=== PATIENT | female | born 1945 | race Caucasian/White ===

== ENCOUNTER 2018-06-08 11:35 | Inpatient (IN) | payer OTHER ==
[~2018-06-08] VITALS: Ht 177.8 cm; Wt 141.2 kg
--- NOTE | ~2018-06-08 | CON ---
[place], [place] REPORT OF CONSULTATION NAME: [facility]ONG [id number] UNIT #: [id number] ROOM: 402 DOCTOR: PHD SARKIS CLARIBEL BIRTHDATE: [birth year] DOS: HISTORY OF PRESENT ILLNESS: The patient is a 72-year-old female referred by Dr. Olmstead with concerns for depression. At the present time, the patient is on the medical floor at [facility]. The patient is and lives with her daughter, who will be staying out of town during the school year to attend graduate school. She has a son, who lives in [place]. 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 PAST MEDICAL HISTORY: Significant for AFib, cholelithiasis, renal calculi, hypercholesterolemia, hypertension, morbid obesity, osteoarthritis, spinal stenosis of the lumbar region, vitamin B deficiency, vitamin D deficiency. PAST SURGICAL HISTORY: Tonsillectomy, appendectomy. MEDICATIONS: Include Synthroid, Lipitor, Ultram, Dulcolax, Zofran, Levaquin, Lanoxin. SOCIAL HISTORY: The patient denied drug and alcohol use and is a former smoker. The patient is awake, alert, and oriented to person, place, and time. She acknowledged a subjective sense of sadness and concerns for her house. She firmly denied suicidal ideation, plan, and intent. She has struggled with adjustment to disability issues over the past 6 months. Provided cognitive behavioral and supportive therapy interventions. The patient was agreeable to participating in counseling upon discharge. DIAGNOSIS: Adjustment disorder with depressed mood. RECOMMENDATIONS: Individual therapy upon discharge. Thank you very much for this consult. Cheyanne Desouza, PhD CM:CONSTR:REPORT OF CONSULTATION 1622 06/10/18 0210 interface
[~2018-06-08 11:35] MED LIST: CEFTIN500 M1 PO; DILTIAZEM HCL90 M1 PO; DILTIAZEM HYDR PO; LEVOTHYROXIN0.125 MG PO; SIMVASTATIN40 MG PO; VITAMIN D34000 UNIT PO; XARE20MG PO
[2018-06-08 11:44] VITALS: BP 97/71
[2018-06-08 12:30] VITALS: BP 101/62
[2018-06-08 13:18] LABS: BILIRUBIN 1+ (NEGATIVE); BLOOD 3+ (NEGATIVE); CLARITY TURBID (CLEAR); COLOR YELLOW (YELLOW); GLUCOSE NEGATIVE (NEGATIVE); KETONE NEGATIVE (NEGATIVE); LEUKO ESTERASE 3+ (NEGATIVE); NITRITE POSITIVE (NEGATIVE); SPECIFIC GRAVITY 1.025 (1.005-1.030)
[2018-06-08 13:31] LABS: WBC TNTC wbc/hpf (0-5)
[2018-06-08 13:31] LABS: BASO % 0.5 % (0.0-1.0); EOS # 0.1 10*3/uL (0.0-0.4); EOS % 0.7 % (1.0-4.0); HEMATOCRIT 42.1 % (37.0-47.0); HEMOGLOBIN 12.9 g/dl (12.0-16.0); LYMPH % 11.8 % (27.0-41.0); MEAN CELL VOLUME 83.5 fl (81.0-99.0); MEAN CORPUSCULAR HGB 25.6 pg (27.0-31.0); MEAN CORPUSCULAR HGB CONC 30.6 g/dl (33.0-37.0); MEAN PLATELET VOLUME 10.2 fl (9.6-12.3); MONO # 0.7 10*3/uL (0.1-1.0); MONO % 8.2 % (3.0-9.0); NEUT # 6.9 10*3/uL (2.3-7.9); NEUT % 77.7 % (47.0-73.0); PLATELET COUNT AUTOMATED 323 10*3/uL (130-400); RED BLOOD COUNT 5.04 10*6/uL (4.10-5.10); RED CELL DISTRI WIDTH 14.5 % (0-14.5); WHITE BLOOD COUNT 8.8 10*3/uL (4.8-10.8)
[2018-06-08 13:47] LABS: ALBUMIN 2.4 gm/dl (3.1-4.5); ALKALINE PHOSPHATASE 123 U/L (45-117); BUN 11 mg/dl (7-24); CHLORIDE 108 mmol/L (98-107); CREATININE 0.67 mg/dL (0.55-1.02); LIPASE 78 U/L (73-393); POTASSIUM 3.7 mmol/L (3.5-5.1); SGOT/AST 10 IU/L (3-35); SGPT/ALT 14 U/L (12-78); SODIUM 143 mmol/L (136-145); TROPONIN I < 0.015 ng/ml (<0.045)
[2018-06-08 13:48] LABS: ACT PARTIAL THROMBO TIME 49.8 SECONDS (20.8-31.5)
[2018-06-08 13:51] VITALS: BP 94/51
[2018-06-08 13:57] LABS: INTERNATIONAL NORM RATIO 7.1 (2.0-3.5)
[2018-06-08 15:38] VITALS: BP 97/56
[2018-06-08 16:00] VITALS: BP 97/56
[2018-06-08] MEDS ORDERED: METOPROLOL TART75 MG PO (17:02)
[2018-06-08] MEDS ORDERED: ROSUVASTATIN CA10 MG PO (17:03)
[2018-06-08] MEDS ORDERED: ZESTRIL10 MG PO (17:03)
[2018-06-08] MEDS ORDERED: WARFARIN SOD5 MG PO (17:05)
[2018-06-08] MEDS ORDERED: FUROSEMIDE20 M1 PO (17:05)
[2018-06-08] MEDS ORDERED: ULTRAM50 MG PO (17:06)
[2018-06-08 20:00] VITALS: BP 102/60
[2018-06-09] VITALS (12 sets, daily range): BP systolic 88–152; BP diastolic 28–67
[2018-06-09 06:00] LABS: BASO % 0.5 % (0.0-1.0); EOS # 0.1 10*3/uL (0.0-0.4); EOS % 1.8 % (1.0-4.0); HEMATOCRIT 38.2 % (37.0-47.0); LYMPH # 1.2 10*3/uL (1.3-4.4); LYMPH % 19.7 % (27.0-41.0); MEAN CELL VOLUME 82.7 fl (81.0-99.0); MEAN CORPUSCULAR HGB CONC 31.4 g/dl (33.0-37.0); MEAN PLATELET VOLUME 10.2 fl (9.6-12.3); MONO # 0.6 10*3/uL (0.1-1.0); MONO % 10.3 % (3.0-9.0); NEUT # 4.1 10*3/uL (2.3-7.9); NEUT % 66.7 % (47.0-73.0); PLATELET COUNT AUTOMATED 281 10*3/uL (130-400); RED BLOOD COUNT 4.62 10*6/uL (4.10-5.10); RED CELL DISTRI WIDTH 14.6 % (0-14.5); WHITE BLOOD COUNT 6.1 10*3/uL (4.8-10.8)
[2018-06-09 06:27] LABS: ALBUMIN 2.2 gm/dl (3.1-4.5); BUN 9 mg/dl (7-24); CHLORIDE 109 mmol/L (98-107); POTASSIUM 3.6 mmol/L (3.5-5.1); SGPT/ALT 13 U/L (12-78); SODIUM 142 mmol/L (136-145)
[2018-06-09 06:34] LABS: ALKALINE PHOSPHATASE 102 U/L (45-117); CREATININE 0.46 mg/dL (0.55-1.02); FREE T4 1.68 ng/dl (0.76-1.46); PHOSPHOROUS 3.1 mg/dL (2.5-4.9); SGOT/AST 16 IU/L (3-35); THYROID STIM HORMONE (HS) 0.853 uIU/ml (0.358-4.75)
[2018-06-09 06:39] LABS: ACT PARTIAL THROMBO TIME 51.3 SECONDS (20.8-31.5)
[2018-06-09 06:46] LABS: INTERNATIONAL NORM RATIO 5.7 (2.0-3.5)
[2018-06-10] VITALS (10 sets, daily range): BP systolic 91–136; BP diastolic 44–85
[2018-06-10 06:58] LABS: BASO # 0.1 10*3/uL (0.0-0.1); BASO % 0.7 % (0.0-1.0); EOS # 0.2 10*3/uL (0.0-0.4); HEMOGLOBIN 12.4 g/dl (12.0-16.0); LYMPH # 1.3 10*3/uL (1.3-4.4); LYMPH % 18.2 % (27.0-41.0); MEAN CELL VOLUME 82.8 fl (81.0-99.0); MEAN CORPUSCULAR HGB 25.7 pg (27.0-31.0); MEAN PLATELET VOLUME 10.3 fl (9.6-12.3); MONO # 0.8 10*3/uL (0.1-1.0); MONO % 10.4 % (3.0-9.0); NEUT # 4.8 10*3/uL (2.3-7.9); PLATELET COUNT AUTOMATED 287 10*3/uL (130-400); RED BLOOD COUNT 4.83 10*6/uL (4.10-5.10); RED CELL DISTRI WIDTH 14.6 % (0-14.5); WHITE BLOOD COUNT 7.3 10*3/uL (4.8-10.8)
[2018-06-10 07:10] LABS: BUN 9 mg/dl (7-24); CHLORIDE 109 mmol/L (98-107); CREATININE 0.55 mg/dL (0.55-1.02); POTASSIUM 3.6 mmol/L (3.5-5.1); SODIUM 145 mmol/L (136-145)
[2018-06-10 07:12] LABS: INTERNATIONAL NORM RATIO 4.9 (2.0-3.5)
[2018-06-11] VITALS: BP 139/68
[2018-06-11 07:14] LABS: INTERNATIONAL NORM RATIO 2.9 (2.0-3.5)
[2018-06-11 08:00] VITALS: BP 106/54
[2018-06-11 12:00] VITALS: BP 103/50
[2018-06-11] MEDS ORDERED: LEVAQUIN750 M1 PO (13:10)
[2018-06-11] MEDS ORDERED: TOPROL XL50 M1 PO (13:10)
[2018-06-11] MEDS ORDERED: K-TAB20 MEQ PO (13:10)
[2018-06-11] MEDS ORDERED: ULTRAM50 MG PO (13:10)
[2018-06-11] MEDS ORDERED: LASIX40 MG PO (13:10)
[2018-06-11] MEDS ORDERED: COUMADIN5 M2 PO (13:10)
[2018-06-11] MEDS ORDERED: DILTIAZEM 24HR300 M1 PO (13:10)
[2018-06-11] MEDS ORDERED: NYSTOP60 GM T (13:10)
[2018-06-11] MEDS ORDERED: SYNTHROID,LEV112 MCG PO (13:10)
[2018-06-11 16:00] VITALS: BP 98/48
== END 2018-06-11 16:13 | disposition other institution (70) | DRG 871 ==
LOC: ED 11:35 → EDHOLD 14:07 → 4E 14:07
PROVIDERS: Emergency Medicine; Internal Medicine
DX: A41.9 Sepsis, unspecified organism (principal); E43 Unspecified severe protein-calorie malnutrition; L89.153 Pressure ulcer of sacral region, stage 3; I48.91 Unspecified atrial fibrillation; L89.313 Pressure ulcer of right buttock, stage 3; E87.8 Other disorders of electrolyte and fluid balance, not elsewhere classified; N39.0 Urinary tract infection, site not specified; Z68.41 Body mass index [BMI] 40.0-44.9, adult; E66.01 Morbid (severe) obesity due to excess calories; F43.21 Adjustment disorder with depressed mood; R74.8 Abnormal levels of other serum enzymes; E55.9 Vitamin D deficiency, unspecified; E53.9 Vitamin B deficiency, unspecified; R79.1 Abnormal coagulation profile; I11.0 Hypertensive heart disease with heart failure; M19.90 Unspecified osteoarthritis, unspecified site; I50.9 Heart failure, unspecified; R26.2 Difficulty in walking, not elsewhere classified; E78.00 Pure hypercholesterolemia, unspecified; E03.9 Hypothyroidism, unspecified; R31.9 Hematuria, unspecified; Z79.01 Long term (current) use of anticoagulants; Z79.899 Other long term (current) drug therapy; Z87.440 Personal history of urinary (tract) infections; Z87.442 Personal history of urinary calculi; Z90.49 Acquired absence of other specified parts of digestive tract; Z82.49 Family history of ischemic heart disease and other diseases of the circulatory system; Z83.3 Family history of diabetes mellitus; Z79.4 Long term (current) use of insulin; Z80.3 Family history of malignant neoplasm of breast

== ENCOUNTER 2018-09-05 09:45 | Emergency (ER) | payer OTHER ==
[~2018-09-05] VITALS: Ht 5 cm; Wt 134.7 kg
--- NOTE | ~2018-09-05 | EKG ---
[place], [place] ELECTROCARDIOGRAM REPORT NAME: DYLLAN ARMSTRONG UNIT #: [id number] ROOM: DOCTOR: EPIPHANY DRAFT REPORT BIRTHDATE: [birth year] [facility] Test Date: 2018-09-05 Test Time: 10:13:27 Pat Name: DYLLAN ARMSTRONG Department: Room: Gender: F Host And Hostess: ESTEPHANIA : 1945 Requested By: BEE ACEVEDO Order Number: [id number] Reading MD: Miles Jones MD Measurements Intervals [place] Rate: 155 P: IA: QRS: 60 QRSD: 89 T: 252 QT: 314 QTc: 505 Interpretive Statements Atrial fibrillation with rapid V-rate Ventricular premature complex Repolarization abnormality, prob rate related Compared to ECG 08/20/2018 13:03:23 Ventricular premature complex(es) now present Early repolarization now present Sinus rhythm no longer present Electronically Signed On 09-06-2018 9:16:47 PDT by Miles Jones MD CM:EKGRPT:ELECTROCARDIOGRAM REPORT 1013 [id number] BEE BOOKER DRAFT REPORT BEE ACEVEDO M.D.
[~2018-09-05 09:45] MED LIST changes: +ATORVASTATIN CA20 M1 PO; +CARDIZEM CD180 MG PO; +COUMADIN3 M1 PO; +COUMADIN5 M2 PO; +DILTIAZEM 24HR300 M1 PO; +FUROSEMIDE20 M1 PO; +GERI-HYDROLAC222 ML T; +IMODIUM A-D2 M2 PO; +K-TAB20 MEQ PO; +LANOXIN250 MCG PO; +LASIX40 MG PO; +LEVAQUIN750 M1 PO; +LIPITOR10 MG PO; +LIQUACEL 30 ML30 M1 PO; +LOPRESSOR25 MG PO; +Lopressor25 MG PO; +METOPROLOL TART50 M1 PO; +METOPROLOL TART75 MG PO; +MIRALAX17 GM PO; +NATURE'S BLEND F1 MG PO; +NYSTOP60 GM T; +PACERONE200 MG PO; +PREPARATION H1 EAC1 R; +ROSUVASTATIN CA10 MG PO; +SYNTHROID,LEV112 MCG PO; +TAB-A-VITE1 EACH PO; +TOPROL XL50 M1 PO; +TRAMADOL HCL50 MG PO; +ULTRAM50 MG PO; +VITAMIN C100 M3 PO; +WARFARIN SOD5 MG PO; +ZESTRIL10 MG PO
[2018-09-05 10:11] LABS: BASO % 0.6 % (0.0-1.0); EOS # 0.1 10*3/uL (0.0-0.4); EOS % 1.4 % (1.0-4.0); HEMATOCRIT 40.8 % (37.0-47.0); LYMPH # 1.3 10*3/uL (1.3-4.4); LYMPH % 19.4 % (27.0-41.0); MEAN CELL VOLUME 86.1 fl (81.0-99.0); MEAN CORPUSCULAR HGB 27.4 pg (27.0-31.0); MEAN CORPUSCULAR HGB CONC 31.9 g/dl (33.0-37.0); MEAN PLATELET VOLUME 10.6 fl (9.6-12.3); MONO # 0.7 10*3/uL (0.1-1.0); MONO % 9.9 % (3.0-9.0); NEUT # 4.5 10*3/uL (2.3-7.9); NEUT % 68.2 % (47.0-73.0); PLATELET COUNT AUTOMATED 310 10*3/uL (130-400); RED BLOOD COUNT 4.74 10*6/uL (4.10-5.10); RED CELL DISTRI WIDTH 17.9 % (0-14.5); WHITE BLOOD COUNT 6.6 10*3/uL (4.8-10.8)
[2018-09-05 10:24] LABS: INTERNATIONAL NORM RATIO 1.4 (2.0-3.5)
[2018-09-05 10:27] LABS: ALKALINE PHOSPHATASE 189 U/L (45-117); BUN 6 mg/dl (7-24); CHLORIDE 110 mmol/L (98-107); CREATININE 0.48 mg/dL (0.55-1.02); POTASSIUM 3.3 mmol/L (3.5-5.1); SGOT/AST 36 IU/L (3-35); SGPT/ALT 19 U/L (12-78); SODIUM 143 mmol/L (136-145); TOTAL PROTEIN 5.6 gm/dL (6.4-8.2); TROPONIN I 0.026 ng/ml (<0.045)
== END 2018-09-05 11:24 | disposition home or self-care (01) ==
LOC: ED 09:45
PROVIDERS: Emergency Medicine
DX: I48.91 Unspecified atrial fibrillation (principal); I95.9 Hypotension, unspecified; R73.9 Hyperglycemia, unspecified; Z88.9 Allergy status to unspecified drugs, medicaments and biological substances; Z79.899 Other long term (current) drug therapy; Z68.41 Body mass index [BMI] 40.0-44.9, adult; Z90.89 Acquired absence of other organs; Z90.49 Acquired absence of other specified parts of digestive tract

== ENCOUNTER 2018-09-21 11:17 | Inpatient (IN) | payer OTHER ==
[~2018-09-21] VITALS: Ht 177.8 cm; Wt 130.3 kg
--- NOTE | ~2018-09-21 | PR ---
[place], [place] PROGRESS NOTE NAME: [id number] UNIT #: [id number] ROOM: 424 DOCTOR: DAVON STACK,MARCH BIRTHDATE: [birth year] DOS: 09/27/2018 SUBJECTIVE: The patient is being followed for UTI and cellulitis of her left leg. She remains on amoxicillin for VRE UTI as well as cefdinir for her left leg cellulitis, which continues to improve. She has no pain in the leg. Denies any nausea, vomiting. She has had diarrhea since May. Her stool for enteric pathogens and C. diff were both negative. No fevers or chills. No cough or shortness of breath. She feels well. LABORATORY DATA: WBC 6.4, platelets 232. BUN 6, creatinine 0.6. PHYSICAL EXAMINATION: VITAL SIGNS: Show temperature 97.7, pulse 73, respirations 20, BP 108/52. GENERAL: A 73-year-old obese female, in no acute distress. HEAD, EYES, EARS, NOSE AND THROAT: Normocephalic. No thrush. LUNGS: Clear to auscultation bilaterally. Respirations even and unlabored. HEART: Irregular rhythm. No murmur appreciated. ABDOMEN: Soft, obese. EXTREMITIES: +2 to 3 edema bilateral lower extremities. Left lower extremity with little residual erythema. No tenderness. ASSESSMENT: Left leg cellulitis, which is resolving as well as vancomycin-resistant Enterococci urinary tract infection. PLAN: She is to continue her cefdinir and amoxicillin. She is awaiting placement in SNF. The amoxicillin is till the and the cefdinir is till the . MARCH SREEKANTH MAYS Arabella Williamson MD CM:PNTRANS [id number] MARCH DAVON STACK 09/30/18 1544 interface
--- NOTE | ~2018-09-21 | PR ---
[place], [place] PROGRESS NOTE NAME: DYLLAN ARMSTRONG UNIT #: [id number] ROOM: 424 DOCTOR: ELO CARDENAS,VALERIA BIRTHDATE: [birth year] DOS: 09/27/2018 This is attestation to the progress note made by nurse practitioner, Marina Jones. I agree with the assessment and plan. I reviewed the labs, imaging and made the necessary changes in the note. Arabella Gasca MD CM:PNTRANS 17 31 VALERIA GASCA MD 10/04/182131 interface
--- NOTE | ~2018-09-21 | O ---
[place], [place] OPERATIVE NOTE NAME: [facility]AN [facility]STRONG [id number] UNIT #: [id number] ROOM: 424 DOCTOR: DARA CARDENASLIANE BIRTHDATE: [birth year] DOS: 09/28/2018 HISTORY OF PRESENT ILLNESS: A 73-year-old patient who presented with diarrhea. The patient's stool studies have been negative and the patient with multiple medical issues among which anasarca and lower extremity edema. Blood cultures have been negative. Consultation has been dictated. PAST MEDICAL HISTORY: Associated with hypothyroidism, cholelithiasis, difficulty ambulation, pericardial effusion, umbilical hernia, decubitus ulcers, protein-calorie malnutrition, and obesity. PAST SURGICAL HISTORY: Appendectomy, D and C, tonsillectomy. PROCEDURE: Today's procedure part of investigation is colonoscopy plus tattoo marking of a polyp at hepatic flexure. PREMEDICATION: Propofol. SCOPE: Olympus folding colonoscope 10L video. REPORT: After putting the patient in left lateral position and application of lubricant to the scope, the scope was introduced. Thereafter, under direct visualization, advanced through the length of colon without difficulty. A few small polypoid lesions were noticed particularly one larger approximately 1 cm and half at hepatic flexure with tattoo marked this area with 2 mL of tattoo ink. Base of the cecum explored, appendiceal orifice identified, ileocecal valve was intubated, which appears to be normal terminal ileum. The patient was gradually extubated, we could not take deep biopsies or any biopsies for that matter for microscopic colitis, neither tissue diagnosis of polyp because we found out at the last minute that the patient has been given Xarelto the last night. Therefore, the patient extubated, tolerated procedure well. IMPRESSION: Diverticulosis, particularly one at cecum. Multiple small sessile polypoid lesions in colon, history of chronic diarrhea. PLAN AND DISCUSSION: We are still having issues regarding lack of availability of tissue for diagnosis and eradication of possible tubulovillous polypoid lesions. She requires to have a separate session of being away from Xarelto at least 1 week, ____ being 3 days preoperatively and day of the operation and perhaps few days after operation because she needs to be back on Xarelto. There is exposure of tissue and possible bleeding as a consequence may happen. At the present time, we are going to manage this with start her on Lomotil 5 mg b.i.d. We have to break the cycle of diarrhea. We are going to put her on Florastor 500 mg daily, 250 mg b.i.d., avoiding dairy products completely and Questran 1 pack b.i.d. at the same time and conservative management until such a time that it is understood and cleared that we are going to be without anticoagulants for several days if we attempt removal of the polyps and the biopsy of the colon needed. Cultures have been all negative. Apparently, this has been studied in an outpatient setting. ____. Her stool studies are negative for ova and parasites, C. diff has been unremarkable. If this condition continues, then we [place], [place] OPERATIVE NOTE NAME: DYLLAN ARMSTRONG UNIT #: [id number] ROOM: [facility] DOCTOR: DARA CARDENAS,LIANE BIRTHDATE: [birth year] are going to proceed with a chromogranin A level to rule out neuroendocrine tumors contribution to her colonic contribution to diarrhea products. Workup in progress. LIANE DIAMOND MD CM:OPRECORD:OPERATIVE NOTE 29 30 LIANE DIAMOND MD 09/28/182230 interface
--- NOTE | ~2018-09-21 | EKG ---
[place], [place] ELECTROCARDIOGRAM REPORT NAME: DYLLAN ARMSTRONG UNIT #: [id number] ROOM: 424 DOCTOR: ADE DRAFT REPORT BIRTHDATE: [birth year] [facility] Test Date: 2018-09-21 Test Time: 14:15:25 Pat Name: DYLLAN ARMSTRONG Department: Room: 424 Gender: F Coil Machine Supervisor: Silvana Amaro : 1945 Requested By: CARIDAD ANTUNEZ Order Number: [id number] Reading MD: Miles Jones MD Measurements Intervals [place] Rate: 105 P: 0 ND: QRS: 38 QRSD: 86 T: 240 QT: 315 QTc: 417 Interpretive Statements Atrial fibrillation with rapid response Low voltage, precordial leads Nonspecific repol abnormality, diffuse leads Compared to ECG 09/05/2018 10:13:27 Low QRS voltage now present Electronically Signed On 09-25-2018 12:04:40 PDT by Miles Jones MD CM:EKGRPT:ELECTROCARDIOGRAM REPORT 1415 1204 CARIDAD BOOKER DRAFT REPORT CARIDAD MCMANUS
--- NOTE | ~2018-09-21 | CON ---
[place], [place] REPORT OF CONSULTATION NAME[id number] UNIT #: [id number] ROOM: 424 DOCTOR: DARA CARDENASLIANE BIRTHDATE: [birth year] DOS: 09/25/2018 GASTROINTESTINAL CONSULTATION REPORT HISTORY OF PRESENT ILLNESS: This is a 73-year-old patient who presented with multiple medical problems, among which has been venous insufficiency of lower extremities, difficulty ambulation, extreme edema of lower extremity. Also she has been complaining of chronic diarrhea that has been with her since May. She resides in a snf with difficulty ambulation and rehabilitation. I have been asked for assessment of the diarrhea. We have had a stool culture that has been negative as well. We have C. diff assessment that has been negative. The patient apparently is in a snf, has been given 2 weeks of Questran, which she tells me that it did not help and therefore it was discontinued. PAST MEDICAL HISTORY: Morbid obesity, difficulty ambulation, cholelithiasis, history of hypothyroidism, incontinence, old history of pericardial effusion, protein-calorie malnutrition, umbilical hernia, and decubitus ulcer, all has been reviewed. PAST SURGICAL HISTORY: Tonsillectomy, appendectomy, D and C, shoulder surgery. SOCIAL HISTORY: Nonsmoker, nonalcohol consumer. FAMILY HISTORY: Noncontributory. ALLERGIES: TO NO MEDICATION, TO CERTAIN SOAPS; HOWEVER, SHE IS ALLERGIC TO. HOME MEDICATIONS: Reviewed including amiodarone, atorvastatin, digoxin, folic acid, levothyroxine, metoprolol, potassium supplementation and Xarelto. REVIEW OF SYSTEMS: HEENT: Denies double vision or blurred vision. RESPIRATORY: Denies acute shortness of breath. CARDIOVASCULAR: Denies acute chest pain. DIGESTIVE SYSTEM: Complaining of diarrhea, some days worse than the other since May. Apparently, she has been told by multiple physicians in the past to have a colonoscopy done; however, for variety of reasons, she could not get around it. PHYSICAL EXAMINATION: VITAL SIGNS: Stable. GENERAL: Pleasant patient, fully alert and oriented. HEENT: Head: Normocephalic, nontraumatic. Mouth and buccal mucosa benign. NECK: Supple, no thyromegaly, no cervical lymphadenopathy. CHEST: Symmetric anatomy, equal expansion. HEART: Irregular irregularity of atrial fibrillation with moderate ventricular response. Soft systolic murmur at left sternal border was noticed. ABDOMEN: Morbidly obese. Intraabdominal organs cannot be palpated because of the umbilical hernia. This is about an 8 cm in its diameter, nonreducible. EXTREMITIES: 3+ edema from thigh to the ankle joint. Chronic subcutaneus [place], [place] REPORT OF CONSULTATION NAME: DYLLAN ARMSTRONG UNIT #: [id number] ROOM: 424 DOCTOR: LIANE DIAMOND MD BIRTHDATE: [birth year] dependent edema, which is difficult to drive with diuretics noticed. NEUROLOGIC: Fully alert, oriented to time, place, person. Sensory and motor intact. Cranial nerves 2-12 intact. IMPRESSION: Diarrhea, chronic noninfectious based on Clostridium difficile and stool cultures, peripheral edema, and difficulty ambulation. Other adjunctive diagnoses as outlined in paragraph past medical, surgical history. Urine culture, heavy gram-positive cocci has been addressed with antibiotic therapy. This was vancomycin-resistant Enterococcus species. Apparently, resistance to tetracycline, vancomycin, ciprofloxacin, and levofloxacin, all has been noticed; however, sensitive to multiple other choice including the linezolid and penicillins. PLAN AND DISCUSSION: Otherwise, the patient is apparently ready to be discharged as I see by hospitalist team. If she is discharged, I am going to be making arrangements through _[facility] to start her on colonic prep on Friday and Friday morning, we are going to do a colonoscopy as an outpatient on her unless she is remaining as inpatient. Therefore, then we will address at such. Other adjunctive diagnoses as outlined in paragraph past medical, surgical history. Workup in progress. We are concerned about a secretory tubulovillous adenoma, possibly large or occult colonic malignancy, otherwise. Thank you very much indeed. LIANE DIAMOND MD CM:CONSTR:REPORT OF CONSULTATION 1618 09/26/18 1113 interface
--- NOTE | ~2018-09-21 | EKG ---
[place], [place] ELECTROCARDIOGRAM REPORT NAME: DYLLAN ARMSTRONG UNIT #: [id number] ROOM: 424 DOCTOR: ADE DRAFT REPORT BIRTHDATE: [birth year] [facility] Test Date: 2018-09-21 Test Time: 11:42:32 Pat Name: DYLLAN ARMSTRONG Department: Room: 424 Gender: F Senior It Auditor: Silvana Amaro : 1945 Requested By: ROLO MUÑOZ Order Number: [id number] Reading MD: Miles Jones MD Measurements Intervals [place] Rate: 129 P: AR: QRS: 61 QRSD: 90 T: 259 QT: 316 QTc: 463 Interpretive Statements Atrial fibrillation Repol abnrm suggests ischemia, diffuse leads Baseline wander in lead(s) V1 Compared to ECG 09/05/2018 10:13:27 Possible ischemia now present Ventricular premature complex(es) no longer present Electronically Signed On 09-25-2018 12:03:22 PDT by Miles Jones MD CM:EKGRPT:ELECTROCARDIOGRAM REPORT 1142 1203 ROLO MUÑOZ MD EPIPHANY DRAFT REPORT ROLO MUÑOZ MD
[2018-09-21 11:21] VITALS: BP 110/47
[2018-09-21 11:47] LABS: HEMATOCRIT 39.9 % (37.0-47.0); HEMOGLOBIN 12.8 g/dl (12.0-16.0); MEAN CELL VOLUME 86.2 fl (81.0-99.0); MEAN CORPUSCULAR HGB 27.6 pg (27.0-31.0); MEAN CORPUSCULAR HGB CONC 32.1 g/dl (33.0-37.0); MEAN PLATELET VOLUME 11.3 fl (9.6-12.3); PLATELET COUNT AUTOMATED 277 10*3/uL (130-400); RED BLOOD COUNT 4.63 10*6/uL (4.10-5.10); RED CELL DISTRI WIDTH 16.5 % (0-14.5); WHITE BLOOD COUNT 19.1 10*3/uL (4.8-10.8)
[2018-09-21 11:56] LABS: ACT PARTIAL THROMBO TIME 34.5 SECONDS (20.8-31.5); INTERNATIONAL NORM RATIO 1.5 (2.0-3.5)
[2018-09-21 11:59] LABS: ALBUMIN 1.9 gm/dl (3.1-4.5); ALKALINE PHOSPHATASE 197 U/L (45-117); BUN 6 mg/dl (7-24); CHLORIDE 105 mmol/L (98-107); CREATININE 0.53 mg/dL (0.55-1.02); POTASSIUM 2.7 mmol/L (3.5-5.1); SGOT/AST 29 IU/L (3-35); SGPT/ALT 17 U/L (12-78); SODIUM 139 mmol/L (136-145); TOTAL PROTEIN 5.7 gm/dL (6.4-8.2); TROPONIN I 0.042 ng/ml (<0.045)
[2018-09-21 12:09] LABS: ATYPICAL LYMPHS 1 % (0-0); PLATELET SUFFICIENCY NORMAL (NORMAL); TOTAL CELLS COUNTED 100 #CELLS
[2018-09-21 13:47] LABS: BILIRUBIN 1+ (NEGATIVE); BLOOD 3+ (NEGATIVE); CLARITY CLOUDY (CLEAR); COLOR ORANGE (YELLOW); GLUCOSE NEGATIVE (NEGATIVE); KETONE TRACE (NEGATIVE); LEUKO ESTERASE 3+ (NEGATIVE); NITRITE POSITIVE (NEGATIVE); SPECIFIC GRAVITY 1.025 (1.005-1.030)
[2018-09-21 14:17] VITALS: BP 98/40
[2018-09-21 14:17] LABS: RBC TNTC rbc/hpf (0-2)
[2018-09-21 15:49] VITALS: BP 118/60
[2018-09-21 19:32] LABS: ALBUMIN 1.8 gm/dl (3.1-4.5); ALKALINE PHOSPHATASE 183 U/L (45-117); BUN 6 mg/dl (7-24); CHLORIDE 103 mmol/L (98-107); CREATININE 0.65 mg/dL (0.55-1.02); POTASSIUM 2.9 mmol/L (3.5-5.1); SGOT/AST 25 IU/L (3-35); SGPT/ALT 15 U/L (12-78); SODIUM 138 mmol/L (136-145); TOTAL PROTEIN 5.5 gm/dL (6.4-8.2)
[2018-09-21 20:00] VITALS: BP 92/73
[2018-09-21 21:00] VITALS: BP 102/46
[2018-09-22] VITALS: BP 96/42
[2018-09-22 07:04] LABS: BASO % 0.3 % (0.0-1.0); EOS % 0.2 % (1.0-4.0); HEMATOCRIT 36.3 % (37.0-47.0); HEMOGLOBIN 11.6 g/dl (12.0-16.0); LYMPH # 1.2 10*3/uL (1.3-4.4); LYMPH % 13.9 % (27.0-41.0); MEAN CELL VOLUME 87.7 fl (81.0-99.0); MEAN PLATELET VOLUME 11.4 fl (9.6-12.3); MONO # 0.7 10*3/uL (0.1-1.0); MONO % 7.9 % (3.0-9.0); NEUT # 6.9 10*3/uL (2.3-7.9); NEUT % 77.2 % (47.0-73.0); PLATELET COUNT AUTOMATED 217 10*3/uL (130-400); RED BLOOD COUNT 4.14 10*6/uL (4.10-5.10); RED CELL DISTRI WIDTH 16.5 % (0-14.5); WHITE BLOOD COUNT 8.9 10*3/uL (4.8-10.8)
[2018-09-22 07:38] LABS: ALBUMIN 1.6 gm/dl (3.1-4.5); ALKALINE PHOSPHATASE 161 U/L (45-117); BUN 6 mg/dl (7-24); CHLORIDE 108 mmol/L (98-107); CREATININE 0.52 mg/dL (0.55-1.02); HDL CHOLESTEROL 27 mg/dl (40-60); PHOSPHOROUS 2.2 mg/dL (2.5-4.9); POTASSIUM 3.2 mmol/L (3.5-5.1); SGOT/AST 23 IU/L (3-35); SGPT/ALT 15 U/L (12-78); SODIUM 141 mmol/L (136-145); TRIGLYCERIDES 68 mg/dl (<150); VLDL CHOLESTEROL 14 mg/dL (6-40)
[2018-09-22 07:43] LABS: THYROID STIM HORMONE (HS) 0.829 uIU/ml (0.358-4.75)
[2018-09-22 07:45] LABS: CHOLESTEROL < 50 mg/dL (<200); LDL CHOLESTEROL 9 mg/dL (9-159)
[2018-09-22 08:00] VITALS: BP 94/54
[2018-09-22 09:15] LABS: VITAMIN D, 25-HYDROXY 31.2 ng/mL (30-100)
[2018-09-22 12:00] VITALS: BP 97/73
[2018-09-22 16:00] VITALS: BP 88/50
[2018-09-22 20:00] VITALS: BP 80/40
[2018-09-22 22:30] VITALS: BP 96/48
[2018-09-23] VITALS: BP 80/59
[2018-09-23 04:30] VITALS: BP 88/46
[2018-09-23 06:54] LABS: BUN 8 mg/dl (7-24); CHLORIDE 110 mmol/L (98-107); CREATININE 0.73 mg/dL (0.55-1.02); POTASSIUM 3.1 mmol/L (3.5-5.1); SODIUM 144 mmol/L (136-145)
[2018-09-23 08:00] VITALS: BP 90/46
[2018-09-23 12:00] VITALS: BP 98/50
[2018-09-23 16:00] VITALS: BP 94/62
[2018-09-23 20:00] VITALS: BP 98/68
[2018-09-24] VITALS: BP 98/71
[2018-09-24 06:52] LABS: BASO % 0.6 % (0.0-1.0); EOS # 0.1 10*3/uL (0.0-0.4); EOS % 2.3 % (1.0-4.0); HEMOGLOBIN 10.9 g/dl (12.0-16.0); LYMPH # 1.1 10*3/uL (1.3-4.4); LYMPH % 22.7 % (27.0-41.0); MEAN CELL VOLUME 89.7 fl (81.0-99.0); MEAN CORPUSCULAR HGB 27.9 pg (27.0-31.0); MEAN CORPUSCULAR HGB CONC 31.1 g/dl (33.0-37.0); MEAN PLATELET VOLUME 11.5 fl (9.6-12.3); MONO # 0.5 10*3/uL (0.1-1.0); MONO % 9.4 % (3.0-9.0); NEUT # 3.1 10*3/uL (2.3-7.9); NEUT % 64.6 % (47.0-73.0); PLATELET COUNT AUTOMATED 200 10*3/uL (130-400); RED CELL DISTRI WIDTH 16.7 % (0-14.5); WHITE BLOOD COUNT 4.8 10*3/uL (4.8-10.8)
[2018-09-24 07:32] LABS: BUN 5 mg/dl (7-24); CHLORIDE 111 mmol/L (98-107); POTASSIUM 2.7 mmol/L (3.5-5.1); SODIUM 144 mmol/L (136-145)
[2018-09-24 07:33] LABS: CREATININE 0.69 mg/dL (0.55-1.02)
[2018-09-24 08:00] VITALS: BP 82/50
[2018-09-24 12:00] VITALS: BP 88/50
[2018-09-24 16:34] VITALS: BP 90/50
[2018-09-24 20:00] VITALS: BP 90/58
[2018-09-25] VITALS: BP 86/54
[2018-09-25 06:53] LABS: BASO % 0.4 % (0.0-1.0); EOS # 0.1 10*3/uL (0.0-0.4); EOS % 2.5 % (1.0-4.0); HEMOGLOBIN 10.9 g/dl (12.0-16.0); LYMPH # 1.2 10*3/uL (1.3-4.4); LYMPH % 23.9 % (27.0-41.0); MEAN CELL VOLUME 90.9 fl (81.0-99.0); MEAN CORPUSCULAR HGB 27.5 pg (27.0-31.0); MEAN CORPUSCULAR HGB CONC 30.3 g/dl (33.0-37.0); MEAN PLATELET VOLUME 11.4 fl (9.6-12.3); MONO # 0.5 10*3/uL (0.1-1.0); MONO % 9.9 % (3.0-9.0); NEUT # 3.1 10*3/uL (2.3-7.9); NEUT % 62.9 % (47.0-73.0); PLATELET COUNT AUTOMATED 200 10*3/uL (130-400); RED BLOOD COUNT 3.96 10*6/uL (4.10-5.10); RED CELL DISTRI WIDTH 16.7 % (0-14.5); WHITE BLOOD COUNT 4.9 10*3/uL (4.8-10.8)
[2018-09-25 07:05] LABS: BUN 4 mg/dl (7-24); CHLORIDE 111 mmol/L (98-107); CREATININE 0.67 mg/dL (0.55-1.02); POTASSIUM 3.2 mmol/L (3.5-5.1); SODIUM 144 mmol/L (136-145)
[2018-09-25 08:00] VITALS: BP 92/58
[2018-09-25 12:00] VITALS: BP 94/52
[2018-09-25 16:00] VITALS: BP 122/42
[2018-09-25 20:00] VITALS: BP 120/50
[2018-09-26] VITALS: BP 110/60
[2018-09-26 08:45] VITALS: BP 102/58
[2018-09-26 09:33] LABS: BUN 5 mg/dl (7-24); CHLORIDE 113 mmol/L (98-107); CREATININE 0.62 mg/dL (0.55-1.02); POTASSIUM 3.7 mmol/L (3.5-5.1); SODIUM 146 mmol/L (136-145)
[2018-09-26 12:00] VITALS: BP 104/50
[2018-09-26 16:00] VITALS: BP 120/54
[2018-09-26 20:00] VITALS: BP 116/50
[2018-09-27] VITALS: BP 110/68
[2018-09-27 07:08] LABS: BASO % 0.6 % (0.0-1.0); EOS # 0.1 10*3/uL (0.0-0.4); EOS % 1.7 % (1.0-4.0); HEMATOCRIT 36.6 % (37.0-47.0); HEMOGLOBIN 11.3 g/dl (12.0-16.0); LYMPH # 1.1 10*3/uL (1.3-4.4); LYMPH % 17.9 % (27.0-41.0); MEAN CELL VOLUME 89.5 fl (81.0-99.0); MEAN CORPUSCULAR HGB 27.6 pg (27.0-31.0); MEAN CORPUSCULAR HGB CONC 30.9 g/dl (33.0-37.0); MEAN PLATELET VOLUME 10.9 fl (9.6-12.3); MONO # 0.7 10*3/uL (0.1-1.0); MONO % 10.2 % (3.0-9.0); NEUT # 4.4 10*3/uL (2.3-7.9); PLATELET COUNT AUTOMATED 232 10*3/uL (130-400); RED BLOOD COUNT 4.09 10*6/uL (4.10-5.10); RED CELL DISTRI WIDTH 16.5 % (0-14.5); WHITE BLOOD COUNT 6.4 10*3/uL (4.8-10.8)
[2018-09-27 07:33] LABS: BUN 6 mg/dl (7-24); CHLORIDE 110 mmol/L (98-107); POTASSIUM 3.3 mmol/L (3.5-5.1); SODIUM 143 mmol/L (136-145)
[2018-09-27 12:00] VITALS: BP 108/52
[2018-09-27 16:00] VITALS: BP 94/50
[2018-09-27 20:00] VITALS: BP 102/58
[2018-09-28] VITALS (8 sets, daily range): BP systolic 92–112; BP diastolic 39–70
[2018-09-28 06:44] LABS: BASO % 0.5 % (0.0-1.0); EOS # 0.1 10*3/uL (0.0-0.4); EOS % 1.7 % (1.0-4.0); HEMATOCRIT 39.3 % (37.0-47.0); HEMOGLOBIN 11.7 g/dl (12.0-16.0); LYMPH # 1.1 10*3/uL (1.3-4.4); LYMPH % 17.2 % (27.0-41.0); MEAN CORPUSCULAR HGB 27.1 pg (27.0-31.0); MEAN CORPUSCULAR HGB CONC 29.8 g/dl (33.0-37.0); MEAN PLATELET VOLUME 11.4 fl (9.6-12.3); MONO # 0.7 10*3/uL (0.1-1.0); MONO % 10.1 % (3.0-9.0); NEUT # 4.5 10*3/uL (2.3-7.9); NEUT % 69.4 % (47.0-73.0); PLATELET COUNT AUTOMATED 234 10*3/uL (130-400); RED BLOOD COUNT 4.32 10*6/uL (4.10-5.10); RED CELL DISTRI WIDTH 16.4 % (0-14.5); WHITE BLOOD COUNT 6.5 10*3/uL (4.8-10.8)
[2018-09-28 06:56] LABS: BUN 7 mg/dl (7-24); CHLORIDE 110 mmol/L (98-107); CREATININE 0.56 mg/dL (0.55-1.02); POTASSIUM 3.5 mmol/L (3.5-5.1); SODIUM 145 mmol/L (136-145)
[2018-09-29] VITALS: BP 108/58
[2018-09-29 07:20] LABS: BUN 5 mg/dl (7-24); CHLORIDE 108 mmol/L (98-107); CREATININE 0.58 mg/dL (0.55-1.02); POTASSIUM 2.9 mmol/L (3.5-5.1); SODIUM 144 mmol/L (136-145)
[2018-09-29 08:00] VITALS: BP 92/52
[2018-09-29 11:52] VITALS: BP 113/52; BP 84/32
[2018-09-29] MEDS ORDERED: ALDACTONE25 MG PO (13:29)
[2018-09-29] MEDS ORDERED: AMOXICILLIN500 M2 PO (13:29)
[2018-09-29] MEDS ORDERED: LACTINEX 0.2 MG1 TAB PO (13:29)
[2018-09-29] MEDS ORDERED: QUESTRAN LIGHT4 GM PO (13:29)
[2018-09-29] MEDS ORDERED: XARE20MG PO (15:41)
[2018-09-29] MEDS ORDERED: LANOXIN250 MCG PO (15:41)
[2018-09-29] MEDS ORDERED: FUROSEMIDE20 M1 PO (15:41)
[2018-09-29] MEDS ORDERED: KLOR-CON M2020 ME1 PO (15:41)
== END 2018-09-29 15:58 | disposition home or self-care (01) | DRG 871 ==
LOC: ED 11:17 → EDHOLD 14:16 → 4E 14:16 → ICCU 15:04 → 4E 15:32
PROVIDERS: Emergency Medicine; Family Medicine; Internal Medicine; Internal Medicine Cardiovascular Disease; Student in an Organized Health Care Education/Training Program
PROC: 0DJD8ZZ Inspection of Lower Intestinal Tract, Via Natural or Artificial Opening Endoscopic (ICD-10-PCS; principal; 2018-09-28)
DX: A41.9 Sepsis, unspecified organism (principal); E43 Unspecified severe protein-calorie malnutrition; L03.116 Cellulitis of left lower limb; N39.0 Urinary tract infection, site not specified; L03.317 Cellulitis of buttock; Z68.41 Body mass index [BMI] 40.0-44.9, adult; E87.6 Hypokalemia; I48.91 Unspecified atrial fibrillation; E03.9 Hypothyroidism, unspecified; E66.01 Morbid (severe) obesity due to excess calories; M71.20 Synovial cyst of popliteal space [Baker], unspecified knee; R73.9 Hyperglycemia, unspecified; M19.90 Unspecified osteoarthritis, unspecified site; B95.2 Enterococcus as the cause of diseases classified elsewhere; D36.9 Benign neoplasm, unspecified site; R31.9 Hematuria, unspecified; K57.90 Diverticulosis of intestine, part unspecified, without perforation or abscess without bleeding; Z87.442 Personal history of urinary calculi; Z88.9 Allergy status to unspecified drugs, medicaments and biological substances; Z80.3 Family history of malignant neoplasm of breast; Z83.3 Family history of diabetes mellitus; Z82.49 Family history of ischemic heart disease and other diseases of the circulatory system

== ENCOUNTER → 2019-03-26 | Outpatient (CLI) | payer OTHER ==
[~2019-03-26] MED LIST changes: +ALDACTONE25 M1 PO; +ALDACTONE25 MG PO; +AMOXICILLIN500 M2 PO; +CRESTOR10 M1 PO; +DIGITEK250 MCG PO; +KLOR-CON M2020 ME1 PO; +LACTINEX 0.2 MG1 TAB PO; +LEVOTHYROXINE125 MCG PO; +LOPRESSOR50 M1 PO; +METOPROLOL25 MG PO; +QUESTRAN LIGHT4 GM PO
[2019-03-26 09:31] LABS: ALBUMIN 2.1 gm/dl (3.1-4.5); BILIRUBIN, DIRECT 0.9 mg/dL (0.0-0.2); TOTAL PROTEIN 6.8 gm/dL (6.4-8.2)
== END | disposition home or self-care (01) ==
LOC: CT 03-25 09:00 → LAB 08:32 → CT 09:00
PROVIDERS: Physician Assistant
DX: K76.0 Fatty (change of) liver, not elsewhere classified (principal); I48.91 Unspecified atrial fibrillation; R74.8 Abnormal levels of other serum enzymes; E03.9 Hypothyroidism, unspecified; E53.8 Deficiency of other specified B group vitamins; E66.01 Morbid (severe) obesity due to excess calories; R63.4 Abnormal weight loss; R53.1 Weakness; R94.5 Abnormal results of liver function studies; K51.00 Ulcerative (chronic) pancolitis without complications